=== PATIENT | male | born 2000 | race Caucasian/White ===

== ENCOUNTER 2020-12-22 16:10 | Emergency (ER) | payer OTHER ==
[~2020-12-22] VITALS: Ht 175.3 cm; Wt 95.0 kg
[2020-12-22 16:29] VITALS: BP 157/57
[2020-12-22] MEDS ORDERED: LIDOCAINE HCL/EPINEPHRINE 1%-EPI 1:100,000 20 ML VIAL INFIL ONE (20:00)
[2020-12-22] MEDS ORDERED: DOXY100C42 MT (21:01)
== END 2020-12-22 21:19 | disposition home or self-care (01) ==
LOC: ER 16:10
DX: S40.812A Abrasion of left upper arm, initial encounter (principal); S70.312A Abrasion, left thigh, initial encounter; S70.212A Abrasion, left hip, initial encounter; S80.812A Abrasion, left lower leg, initial encounter; Z79.899 Other long term (current) drug therapy; V19.88XA Pedal cyclist (driver) (passenger) injured in other specified transport accidents, initial encounter; Y93.89 Activity, other specified; Y92.89 Other specified places as the place of occurrence of the external cause; Y99.8 Other external cause status
CPT/HCPCS: 20520; 99284; J3490; 99281